=== PATIENT | female | born 1970 | race Caucasian/White ===

== ENCOUNTER 2018-07-19 08:20 | Emergency (ER) | payer OTHER ==
[~2018-07-19] VITALS: Ht 170.2 cm; Wt 108.4 kg
[~2018-07-19 08:20] MED LIST: ATENOLOL 50MG T50 M1 PO; BACTRIM DS TAB1 EACH PO; FENTANYL PATCH75 MCG TP; LYRICA 75 MG CA75 MG; LYRICA100 MG PO; OXYCODONE HCL15 MG; PROMETHAZINE HC25 MG RECTAL; XANAX 0.5 MG0.5 MG PO; ZOFRAN ODT4 MG PO
[2018-07-19] MEDS ORDERED: NEURONTIN600 MG PO (08:33)
[2018-07-19] MEDS ORDERED: FENTANYL PATCH75 MCG TRANSDERM (08:34)
[2018-07-19] MEDS ORDERED: TRAZODONE 150150 M1 PO (08:34)
[2018-07-19] MEDS ORDERED: XANAX1 MG PO (08:34)
[2018-07-19] MEDS ORDERED: ZANAFLEX4 MG PO (08:34)
[2018-07-19 08:45] LABS: ABSOLUTE EOSINOPHILS 0.2 thou/uL (0.0-0.7); ABSOLUTE LYMPHOCYTES 1.2 thou/uL (0.8-5.3); ABSOLUTE MONOCYTES 0.3 thou/uL (0.0-1.2); ABSOLUTE NEUTROPHILS 3.2 thou/uL (1.6-8.1); BASOPHILS 0.3 %; EOSINOPHILS 4.7 %; HEMATOCRIT 43.1 % (37.0-47.0); HEMOGLOBIN 14.5 gm/dL (12.0-15.0); LYMPHOCYTES 24.6 %; MCH 29.1 pg (26.0-34.0); MCHC 33.6 g/dL (28.0-37.0); MCV 86.6 fL (80.0-100.0); MONOCYTES 6.4 %; MPV 7.3 fl. (7.2-11.1); NUCLEATED RBCS 0 /100WBC; PLATELET COUNT* 196 thou/uL (150-400); RBC 4.98 mil/uL (4.20-5.00); RDW-CV 12.8 % (10.5-14.5)
[2018-07-19 08:54] LABS: PROTIME 10.3 Seconds (9.20-11.50)
[2018-07-19 09:05] LABS: URINE BILIRUBIN NEGATIVE (Negative); URINE BLOOD NEGATIVE (Negative); URINE CLARITY CLEAR; URINE COLOR YELLOW; URINE GLUCOSE-RANDOM NEGATIVE (Negative); URINE KETONES NEGATIVE (Negative); URINE LEUKOCYTES-REFLEX NEGATIVE (Negative); URINE NITRITE-REFLEX NEGATIVE (Negative); URINE PROTEIN TRACE (Negative); URINE SPECIFIC GRAVITY 1.025 (1.005-1.030)
[2018-07-19 09:06] LABS: ALBUMIN 3.8 g/dL (3.4-5.0); CALCIUM 8.5 mg/dL (8.5-10.1); CREATININE 0.9 mg/dL (0.6-1.3); POTASSIUM 4.2 mmol/L (3.5-5.1); TOTAL BILIRUBIN 0.8 mg/dL (<0.1-1.0); TOTAL PROTEIN 7.4 g/dL (6.4-8.2)
[2018-07-19 09:13] LABS: INFLUENZA A ANTIGEN None Detected (None Detect); INFLUENZA B ANTIGEN None Detected (None Detect)
[2018-07-19 11:12] VITALS: BP 150/97
--- NOTE | 2018-07-19 15:13 | EKG ---
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
== END 2018-07-19 11:12 | disposition home or self-care (01) ==
LOC: M.ERS 08:20
PROVIDERS: Family Medicine
DX: E83.42 Hypomagnesemia (principal); R53.1 Weakness; M79.7 Fibromyalgia; Z88.6 Allergy status to analgesic agent; Z88.8 Allergy status to other drugs, medicaments and biological substances